=== PATIENT | male | born 1970 | race Caucasian/White ===

== ENCOUNTER 2020-03-25 17:44 | Observation (INO) | payer SELFPAY ==
[~2020-03-25 17:44] MED LIST: Dexamethasone 20 MG/5 ML VIAL ONE; Lidocaine 1% PF 5 ML VIAL ONE; Ondansetron PF 4 MG/2 ML Vial ONE; PROPOFOL 200 MG/20 ML VIAL ONE; Rocuronium Bromide 10 MG/ML (10ML VIAL) ONE
[2020-03-25] MEDS ORDERED: Sodium Chloride 0.9% 10 ML ONE (18:00)
[2020-03-25] MEDS ORDERED: Ondansetron PF 4 MG/2 ML Vial IVP PRN (18:11)
[2020-03-25] MEDS ORDERED: Morphine 2 MG/ML VIAL SLOW IVP PRN (18:11)
[2020-03-25] MEDS ORDERED: Dextrose 50% Abboject 50 ML SYRINGE SLOW IVP PRN (18:11)
[2020-03-25] MEDS ORDERED: hydrALAZINE 20 MG/ML VIAL SLOW IVP PRN (18:11)
[2020-03-25] MEDS ORDERED: Morphine 4 MG/ML VIAL SLOW IVP PRN ×2 (18:11→19:37)
[2020-03-25] MEDS ORDERED: Dextrose 5% in Water 1,000 ML IV PRN (18:11)
[2020-03-25] MEDS ORDERED: traMADol HCl 50 MG TAB PO SCH (18:15)
[2020-03-25] MEDS ORDERED: traMADol HCl 50 MG TAB PO PRN ×2 (18:15→18:16)
[2020-03-25] MEDS ORDERED: Chlorhexidine Gluconate 15 ML UDCUP SSP ONE (18:17)
--- NOTE | 2020-03-25 19:27 | HP ---
ATTENDING: Dr. Montes. CONSULTS: Oral maxillofacial surgery, Dr. Arambula. CHIEF COMPLAINT: Fall from ladder, blunt trauma to face. HISTORY OF PRESENT ILLNESS: This is a 50-year-old gentleman with no past medical history, who was a transfer from [facility]. The patient was working on a house up on a ladder when he lost his balance causing him to fall, hitting the bottom step of a ladder with his face. The patient had a brief loss of consciousness. The patient drove himself to [facility], where he was evaluated that multiple facial fractures and a large complex nasal laceration. The patient's brain CT and cervical spine CT were unremarkable. The patient was transferred to [facility] for OMFS. The patient was accepted by Dr. Arambula. The patient was given 1 L of normal saline, Ancef 2 g IV and a tetanus injection at [facility]. When patient arrived to [place], his pain was controlled. No active bleeding to his laceration, a wet-to-dry dressing was in place. REVIEW OF SYSTEMS: A 10-point review of systems is negative unless otherwise indicated in the above HPI. PAST MEDICAL HISTORY: Denies. PAST SURGICAL HISTORY: Right rotator cuff surgery. CURRENT MEDICATIONS: None. ALLERGIES: NO KNOWN DRUG ALLERGIES. SOCIAL HISTORY: The patient smokes a pack a day, drinks occasionally, no illicit drug use. FAMILY HISTORY: Denies. PHYSICAL EXAMINATION: OBJECTIVE: VITAL SIGNS: Blood pressure 167/100, pulse 100, respirations 18, temperature 98.7, SpO2 98% on room air. HEENT: Head is normocephalic, atraumatic, pupils are equal bilateral. Ear exam normal, large deep laceration from the top of the nose extending to the tip of the nose. Wet-to-dry dressing in place, no active bleeding, oral pharynx exam is normal, teeth intact, mucous membranes slightly dry. NECK: Normal range of motion. No cervical spine tenderness, no JVD. Trachea midline. RESPIRATORY: Good inspiratory and expiratory effort, bilateral breath sounds clear. CARDIAC: Regular rate, regular rhythm, no pedal edema. ABDOMEN: Soft, nontender, nondistended. EXTREMITIES: Moves all extremities, neurovascularly intact x4, tenderness to right elbow, no obvious deformity, normal range of motion. NEUROLOGIC: GCS 15. No focal deficits. LABORATORY DATA: WBC 17.7, RBC 4.82, hemoglobin 15.5, hematocrit 47.4, platelets 367. Sodium 141, potassium 3.8, chloride 103, BUN 11, creatinine 0.78, estimated GFR greater than 90, glucose 94, AST 23, ALT 23. Alcohol less than 10. COVID- 19 negative. DIAGNOSTIC DATA: 1. Brain CT, impression; no acute posttraumatic intracranial sequel. Comminuted fractures of the left and right nasal bone along with a very large laceration of the medial soft tissue nasal bridge extending to the left nasal alar cartilage with subcutaneous gas. Fracture of the osseous nasal septum. 2. Facial bone CT, mildly comminuted left and right nasal bone fracture along the fracture of this sagittal plane along the right frontal process of the maxilla. Fracture of the osseous nasal septum extending into the ethmoid perpendicular plate, which has a serrated appearance. Mildly comminuted fracture, anterior nasal spine of the maxilla. Partial absence through the crown right maxillary lateral incisor with loosening around the root tip. 3. Cervical spine CT, impression; degenerative changes in the cervical spine, no fracture or traumatic subluxation seen. 4. Right elbow x-ray, impression; no acute fracture, dislocation, or acute osseous abnormality. 5. Chest x-ray, impression, no evidence of acute cardiopulmonary process. ASSESSMENT: 1. Bilateral nasal bone fractures, osseous nasal septum fracture. 2. Right frontomaxillary fracture. 3. Large complex laceration anterior midline nose extending through the left nasal alar cartilage. 4. Mildly comminuted fracture, anterior nasal spine of the maxilla. 5. Partial absence through the crown of the right maxillary lateral incisor with loosening around the root tip. 6. Right elbow contusion. PLAN: N.p.o. with maintenance IV fluids, normal saline at 120 an hour. Pain control. [facility], plans to take the patient to the OR for repair of his facial fractures and complex nasal laceration. The patient will be admitted overnight with pain control. The patient can have a regular diet postop. We will stop maintenance IV fluids once the patient is tolerating fluids and food. The patient will be discharged home in the morning. [facility] is calling and medications that are needed and setting up his followup appointment. The plan was discussed with the attending and the patient, who agrees. Job ID: [id number] [facility]
[2020-03-25] MEDS ORDERED: AFRIN NASAL MIST 15 ML BOT ONE (19:53)
[2020-03-25] MEDS ORDERED: Fentanyl 100 MCG/2 ML VIAL ONE (20:24)
[2020-03-25] MEDS ORDERED: Labetalol HCl 100 MG/20 ML VIAL SLOW IVP PRN (20:31)
[2020-03-25] MEDS ORDERED: Ondansetron HCl/PF 4 MG/2 ML Vial IVP PRN (20:31)
[2020-03-25] MEDS ORDERED: Promethazine HCl 25 MG/ML VIAL SLOW IVP PRN (20:31)
[2020-03-25] MEDS ORDERED: Promethazine HCl 25 MG/ML VIAL IM PRN (20:31)
[2020-03-25] MEDS ORDERED: Labetalol HCl 100 MG/20 ML VIAL ONE (20:37)
[2020-03-25] MEDS ORDERED: Ibuprofen 800 MG TAB PO PRN (21:48)
[2020-03-25] MEDS: Sodium Chloride 0.9% 1,000 ML IV SCH (22:25)
[2020-03-25] MEDS: Famotidine 20 MG TAB PO SCH (22:25)
[2020-03-25] MEDS: HYDROcodone/Acetaminophen 5/325 mg Tablet PO PRN (22:26)
[2020-03-25 22:54] VITALS: BMI 26.2
--- NOTE | 2020-03-25 23:37 | PRG ---
DATE OF SERVICE: 03/25/2020 SUBJECTIVE: The patient was seen this evening during rounds. He is postoperative after fixation of multiple facial fractures by Dr. Arambula. The patient is awake and alert. Reports a headache and some mild facial pain. Bilateral nares are packed, and the patient has a splint over nasal bridge. Otherwise, he has no complaints. OBJECTIVE: VITAL SIGNS: Temperature 98.9, pulse 92, respirations 18, oxygen saturation 96% on room air, and blood pressure 160/92. ASSESSMENT: 1. Status post fall from ladder. 2. Bilateral nasal bone and nasal septal fractures. 3. Nasal laceration. 4. Frontal maxillary sinus fractures. PLAN: Postop, we will start the patient on a clear liquid diet and advance to a soft diet as able. Dr. Arambula has recommended a soft diet. He has also ordered antibiotics and pain medications. We will follow his recommendations. He also has called the patient's prescriptions in to the pharmacy. The patient will be discharged in the morning pending appropriate pain control. Job ID: [id number]
[2020-03-25] MEDS ORDERED: Ketorolac Tromethamine 30 MG/ML VIAL IVP SCH (23:59)
[2020-03-25] MEDS ORDERED: Acetaminophen 500 MG TAB PO SCH (23:59)
[2020-03-26] MEDS: Acetaminophen 325 MG TAB PO SCH ×3 (00:03→12:23)
[2020-03-26] MEDS: CEFAZOLIN 2 GM in Premix Bag 1 BAG IVPB SCH ×2 (00:03→08:10)
[2020-03-26 05:59] LABS: #Lymphocytes 1.2 thou/uL (1.20-3.40); #Neutrophils 13.4 thou/uL (1.40-6.50); %Basophils 0.2 % (0.0-1.0); %Eosinophils 0.1 % (0.0-10.0); %Lymphocytes 7.8 % (21.0-51.0); %Monocytes 6.6 % (0.0-10.0); %Neutrophils 85.3 % (42.0-75.0); Hemoglobin 13.4 g/dL (14.0-18.0); Mean Corpuscular HGB CONC 33.9 g/dL (32.0-36.0); Mean Platelet Volume 7.1 fL (7.4-10.4); Platelet Count 324 thou/uL (130-400); RBC Distribution Width 12.4 % (11.5-14.5); Red Blood Cell (RBC) Count 3.95 mill/uL (4.70-6.10); White Blood Cell (WBC) Count 15.7 thou/uL (4.8-10.8)
[2020-03-26 06:19] LABS: Anion Gap 15 mmol/L (10-20); BUN (Urea Nitrogen) 6 mg/dL (8.9-20.6); Calc. Creatinine Clearance 130 mL/min (70-130); Calcium 8.3 mg/dL (7.8-10.44); Carbon Dioxide 23 mmol/L (22-29); Chloride 104 mmol/L (98-107); Glucose 125 mg/dL (70-105); Magnesium 1.7 mg/dL (1.6-2.6); Phosphorus 3.7 mg/dL (2.3-4.7); Potassium 3.9 mmol/L (3.5-5.1); Sodium 138 mmol/L (136-145)
[2020-03-26] MEDS ORDERED: Dexamethasone 4 MG TAB PO SCH (07:00)
[2020-03-26 07:47] VITALS: TEMP 98.2
[2020-03-26] MEDS: HYDROcodone/Acetaminophen 5/325 mg Tablet PO PRN (08:09)
[2020-03-26] MEDS: Famotidine 20 MG TAB PO SCH (08:09)
[2020-03-26] MEDS: Sodium Chloride 0.9% 1,000 ML IV SCH (08:10)
[2020-03-26] MEDS ORDERED: Chlorhexidine Gluconate 15 ML UDCUP SSP SCH (09:00)
[2020-03-26] MEDS ORDERED: FLU VACC QS2020-21(6MOS UP)/PF 60 MCG/0.5 ML SYRINGE IM ONE (09:00)
--- NOTE | 2020-03-26 09:40 | CT ---
CT Facial Bones WO Con History: Facial surgery Comparison: CT face same day Findings: The nasal bone fractures, frontal process of maxilla fracture, and anterior nasal spine of maxillary fractures are similar without further displacement. Interval repair of the nasal laceration. Likely loosening around the right maxillary lateral incisor with absent crown. Impression: Repair of the nasolabial laceration. Facial fractures are similar.
[2020-03-26 11:52] VITALS: BP 128/89
[2020-03-26] MEDS ORDERED: Labetalol HCl 100 MG/20 ML VIAL ONE (12:01)
--- NOTE | 2020-03-27 01:50 | CON ---
DATE OF CONSULTATION: HISTORY OF PRESENT ILLNESS: The patient transferred from [place] [facility] after sustaining a fall off a ladder with multiple facial injuries. While he was at the emergency department in [place], he was ruled out with no C-spine injury and no intracranial injury. He was transferred to [facility] due to significant nasal laceration that required immediate primary closure. The patient states unknown loss of consciousness. MEDICAL HISTORY: Reviewed. PHYSICAL EXAMINATION: Focused limited exam. Upper one-third, normocephalic and atraumatic. No bony steps or depressions noted along the forehead. Middle third, no otic injury. Pupils were equal, reactive to light and accommodation. Ocular motility intact. Mild edema along the radix of the nose. Complex deep linear and stellate laceration extending from the middle to lower third of nasal bridge to include cartilage involvement with noted internal nasal lacerations. Lower third, no dental mobility but noted poor dentition with multiple chronic fractured and carious dentition. No bony steps or mobility of the maxilla or mandible noted. RADIOLOGIC DATA: CT imaging was not available at that time, but radiologist's report reported bilateral nasal bone fracture displacement with bony septal fracture involving the perpendicular plate of the ethmoid bone and small minimally displaced anterior nasal spine fracture. LABORATORY DATA: All lab findings were noted to be within normal limits with mild elevation of white count. IMPRESSION: Complex nasal laceration involving internal and external nasal components and cartilage. Bilateral nasal bone fractures with septal fracture. 1 cm through and through deep laceration in the submental region involving intraorally, vestibular component. PLAN: Discussed findings with the patient. Discussed risks, benefits, alternatives, indications, and recommended to perform primary closure with cartilage reapproximation, soft tissue reapproximation, and closed reduction of nasal fracture and submental and oral laceration repair in the operating room under general anesthesia. The patient elected to continue with the recommended procedure. All questions were answered. Job ID: [id number]
--- NOTE | 2020-03-27 06:42 | OP ---
DATE OF PROCEDURE: 03/25/2020 PREOPERATIVE DIAGNOSES: 1. Complex nasal fracture involving internal and external components with cartilage involvement 2. bilateral nasal bone fracture 3.Nhrohzt-isa-lptzuxr submental laceration involving the oral cavity. POSTOPERATIVE DIAGNOSES: 1.Complex nasal fracture involving internal and external components with cartilage involvement 2. Bilateral nasal bone fracture 3.Abtamig-zvs-tjfgsrk submental laceration involving the oral cavity. TREATMENT: 1. Primary soft tissue closure of lower lip submental laceration with intraoral component, through and through 2. Primary reapproximation of nasal cartilage and primary soft tissue closure of nasal laceration, intra and extranasal 3. closed reduction of nasal fracture with application of Eli splints and external nasal marnie splint. 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 ESTIMATED BLOOD LOSS: 15 mL. SPECIMENS: None. FINDINGS: Significant deep laceration involving the upper and lower lateral cartilage, left scroll region, intermediate crura, bilateral nasal bone displacement, significant complex soft tissue laceration of the nose with areas of soft tissue necrosis, and septal crush injury. No septal hematoma was identified. No significant hemorrhage was appreciated. DISPOSITION: The patient was transferred to the PACU with spontaneous respirations intact. PROCEDURE IN DETAIL: The patient was met in the preoperative holding area after being transferred from [facility]. After clinical and radiographic exam, it was recommended to the patient that he undergo primary soft tissue closure of nasal laceration to include repair of nasal cartilage, primary soft tissue closure of the lower lip and submental laceration with eejgozq-nqi-gcagilb component in the oral cavity, closed reduction of nasal fracture. The patient elected to continue with the recommended procedure. Discussed risks, benefits, indications, and alternatives. The patient elected to continue and all questions were answered. The patient was then transferred to operating room C, placed in a supine position on the operating room table. The patient had cardiopulmonary monitors applied. He was deemed a good candidate to undergo general anesthesia. The patient was then induced in a state of general anesthesia, intubated via oral endotracheal tube. It was secured by the anesthesia team after confirmation of placement. The patient was then prepped and draped in a standard sterile fashion. We then directed our attention to the nasal laceration carefully administering 4 cc of 2% lidocaine with 1:100,000 epinephrine along the nasal laceration site. Then, using greater than 300 cc of sterile saline mixed with 50,000 units of bacitracin, copious saline irrigation, physical debridement of site to remove any foreign debris, noted a stellate 4 cm laceration extending through the middle one-third down to the philtrum of the nose with separation of the left upper and lower lateral cartilage and separation of the left and right medial crura of the lower lateral cartilage, noted crushed and macerated cartilage. At this point using 5-0 Prolene suture with a deep suture placement, reapproximated the upper and lower lateral cartilage, reapproximated the bilateral medial crura. Next, reapproximated the soft tissue lacerations with 4-0 and 5-0 Vicryl sutures and placement of 5-0 Prolene skin sutures with multiple interrupted sutures. We then directed our attention intranasal. Using 5-0 plain gut suture, reapproximated multiple 1 cm lacerations using interrupted sutures. Using a nasal speculum, suction, identified no septal hematoma. Then, using a Boies elevator, performed closed reduction of the nasal fracture. We then placed Eli splints with bacitracin ointment and secured in the membranous septum using 2-0 silk suture; then using a [place] splint, modified and trimmed to stay away from the laceration site; placed using Mastisol, Steri-Strips, and [place] splint. Then, directed our attention to the lower lip and submental laceration using 4-0 chromic started intraorally using multiple interrupted sutures after copious saline irrigation and debridement. Next, closed the skin laceration with 4-0 deep Vicryl and 5-0 Prolene suture. At this point, the procedure was deemed complete. The patient was then extubated, spontaneous respirations intact, and transferred to the PACU in stable condition. Job ID: [id number] [facility]
--- NOTE | 2020-03-28 15:02 | DIS ---
DATE OF ADMISSION: 03/25/2020 DATE OF DISCHARGE: 03/26/2020 DISCHARGE ATTENDING: Dr. Blackburn. CONSULTS: Oral Maxillofacial Surgery, Dr. Arambula. PROCEDURES: On 03/25/2020, primary soft tissue closure of lower lip, submental laceration with intraoral component, [id number], primary reapproximation of nasal cartilage, primary soft tissue closure of nasal laceration, intra- and extra-nasal, closed reduction of nasal fracture with application of Eli splint and external nasal splint. PRIMARY DIAGNOSES: Fall from ladder, approximately 5 feet, complex nasal fracture involving internal and external component with cartilage involvement, bilateral nasal bone fracture, [id number], submental laceration involving the oral cavity. DISCHARGE MEDICATIONS: Prescriptions sent to pharmacy by Dr. Arambula for: 1. Afrin. 2. [place]. 3. Bacitracin. 4. Gaastra nasal spray. 5. Sudafed. 6. Keflex. 7. Motrin. No discontinued medications. HISTORY OF PRESENT ILLNESS AND HOSPITAL COURSE: This is a 50-year-old gentleman, who was transferred from [facility] after he fell from a ladder approximately 5 feet. When the patient fell off the ladder, his face landed on the bottom step. The patient did have a brief loss of consciousness. The patient was evaluated at [facility] and found to have multiple facial fractures and a complex nasal laceration. The patient was transferred to [facility] and Oral Maxillofacial Surgery was consulted. Trauma Services were asked to admit the patient. The patient went to the OR for repair and was admitted overnight for pain control. The patient was given Ancef and a tetanus injection at [facility]. On the day of discharge, the patient's pain was well controlled. The patient was tolerating a diet and voices no complaints. The patient's vital signs were stable and his exam was unremarkable including cardiopulmonary and GI exam. The patient was ambulatory without any difficulties. The patient was deemed stable for discharge home. DISPOSITION: Stable. DISCHARGE INSTRUCTIONS: 1. Location: Home. 2. Diet: Regular, soft diet as tolerated. 3. Activity: Activity as tolerated. 4. FOLLOWUP: Follow up with Dr. Arambula on Friday. Please call his office for time. No need to follow up with Trauma Services. Follow up with primary care physician in 3 to 5 days. This is just a summary of the patient's hospital course, please see the entire medical record for details. Job ID: [id number]
== END 2020-03-26 12:40 | disposition home or self-care (01) ==
LOC: SDC 17:44 → SURG A 18:11
PROVIDERS: ADMIT Surgery; ATTEND Surgery
PROC: 0NSBXZZ Reposition Nasal Bone, External Approach (ICD-10-PCS; principal; 2020-03-25)
DX: S02.2XXA Fracture of nasal bones, initial encounter for closed fracture (principal); S01.81XA Laceration without foreign body of other part of head, initial encounter; S50.01XA Contusion of right elbow, initial encounter; F17.210 Nicotine dependence, cigarettes, uncomplicated; Z20.822 Contact with and (suspected) exposure to COVID-19; W11.XXXA Fall on and from ladder, initial encounter
CPT/HCPCS: 36415; 70486; 80048; 83735; 84100; 85025; 90471; 90662; 90732; 96365; 96366; 96375; G0008; G0009; G0378; J0690; J1100; J2270; J2405; J2704; J3010; J3490; J8540